=== PATIENT | female | born 1990 | race Caucasian/White ===

== ENCOUNTER 2025-05-28 11:37 | Outpatient (REF) | payer SELFPAY ==
[2025-05-28 13:49] LABS: MANUAL DIFF FLAG NO
[2025-05-28 13:58] LABS: Hematocrit 39.4 % (37.0-47.0); Hemoglobin 13.1 g/dl (12.0-16.0); Imm Gran Abs Auto 0.01 X10*3/uL (0.00-0.03); Imm Gran Pct Auto 0.2 % (0.0-0.4); Lymphocytes Absolute Auto 1.9 X10*3/uL (1.2-4.9); Mean Corpuscular HGB Conc 33.2 g/dl (31.0-35.0); Mean Corpuscular Hemoglobin 29.2 pg (27.0-33.0); Mean Corpuscular Volume 87.9 fL (80.0-98.0); NRBC Abs Auto 0.000 X10*3/uL (0.0-0.012); NRBC Pct Auto 0.0 /100WBC (0.0-0.2); Platelet Count 255 X10*3/uL (160-400); Red Blood Count 4.48 X10*6/uL (4.20-5.50); White Blood Count 6.1 X10*3/uL (4.8-10.8)
--- OUTSIDE RECORDS SUMMARY | 2025-05-28 14:55 | XMS_ITS | Data Portability ---
Author Organization [place] - [facility], [facility] Address [address] [place] [address] Care Team Providers Care Unhairer Name Role Phone MARLON AGUIRRE Primary Care Provider [phone] Assessment Encounter Date Assessment Date Assessment LastModified by Organization Details LastModified Time 07/20/2022 07/20/2022 Pt here for cramping after her menstrual cycle. Miesha has been trying to conceive since February 2022. She had a normal vaginal delivery in November 2020. She has been doing ovulation predictor kits for the past 2 months which has been showing that she has been ovulating on cycle day 18 and 19. Her last menstrual period was June 27 through . She has been having severe cramping after her menstrual period this cycle. She has not had this in any of her other cycles. Her cramps are like she normally gets on cycle day one of her. But she is not having her period. No abnormal discharge itch or odor. No constipation diarrhea or blood in her stool. Tried Motrin 800 w/o luck with pain. Normal exam. UA neg. U preg neg. Vaginitis panel sent. Pt to return for TV u/s. [email or web address] Not available 07/20/2022 09:07:02 08/18/2022 08/18/2022 Essentially normal scan, ? of adenomyosis, although no discrete fibroids. Prominent follicle on the right, ? PCOS on the left, although not definitive (and normal androgens in the Fall). Reassured, NSAIDs/heating pads for dysmenorrhea. Hopefully, will conceive spontaneously in the upcoming months, however has upcoming appt with JAMARI in [place] scheduled for October. [email or web address] Not available 08/18/2022 14:16:30 Plan of Treatment Reminders Order Date Submit Date Provider Last Modified By Organization Details Last Modified Time Details Appointments None recorded. Lab bacterial vaginosis + vaginitis panel, vaginal 2022 023 [facility], [address] [place] [address], [id number] 3 11:14:35 urinalysis, dipstick 2022 023 [email or web address] In-Office Order, Internal Use Only DO Not Attach Compendium DO Not Attach Compendium, Do Not Delete/merge, [id number] 3 09:05:47 test, urine 2022 023 [email or web address] In-Office Order, Internal Use Only DO Not Attach Compendium DO Not Attach Compendium, Do Not Delete/merge, [id number] 3 09:05:47 progesteron e, serum 2021 022 [facility], [address] [place] [address], [id number] 2 20:17:34 progesteron e, serum 2021 022 [facility], [address] [place] [address], [id number] 2 02:31:18 estradiol, serum 2021 022 [facility], [address] [place] [address], [id number] 2 05:17:54 lh + FSH, serum 2021 022 [facility], [address] [place] [address], [id number] 2 05:17:55 prolactin, serum 2021 022 [facility], [address] [place] [address], [id number] 2 05:17:56 progesteron e, serum 2021 022 [facility], [address] [place] [address], [id number] 2 05:17:55 beta-HCG, quantitativ e, serum or plasma 2021 [facility], [address], [place], 05:17:54 Referral None recorded. Procedures None recorded. Surgeries None recorded. Imaging US, transvagina l 2022 023 [email or web address] Not available 3 14:17:52 US, transvagina l 2021 022 [email or web address] Not available 11:27:44 Medication Orders None recorded. Patient TargetsNo targets recorded. Patient InstructionsNo instructions recorded. Reason for Referral None Reported. Results Created Date Observation Date Name Description Value Unit Range Abnormal Flag Note LastModifiedBy Organization Detail LastModifiedTime 03/02/2003/02/2022 ESTRA DIOL estradiol 55 pg/mL Refer ence Range s ----- ----- ----- ----- ---- Menst ruati ng Femal es: Folli cular Phase : 21-25 1 Mid-C ycle Phase : 38-64 9 Lutea l Phase : 21-31 2 Postm enopa usal Femal es not on Horom one Repla cemen t Thera py: <10-2 8 Postm enopa usal Femal es on HRT: <10-1 44 Not Available [facility] [address], [place], 03/03/2022 05:17:54 03/02/2003/02/2022 FSH AND LH PROFI LE follicle-sti mulating hormone 4.3 mIU/m L Refer ence Range s ----- ----- ----- ----- ---- Le l Menst ruati ng Femal es: Folli cular Phase 3.0-8 .1 Mid-C ycle: 2.6-1 6.7 Lutea l Phase : 1.4-5 .5 Postm enopa usal: 26.7- 133.4 Not Available [facility] [address], [place], 03/03/2022 05:17:55 09/26/20 22 03/02/2022 FSH AND LH PROFI LE luteinizing hormone 6.9 mIU/m L Refer ence Range s ----- ----- ----- ----- ---- Le l Menst ruati ng Femal es: Folli cular Phase 1.8-1 1.8 Mid-C ycle Peak: 7.6-8 9.1 Lutea l Phase : 0.6-1 4.0 Postm enopa usal: 5.2-6 2.0 Not Available [facility] [address] [place] [address], [place], 03/03/2022 05:17:55 03/02/20 22 03/02/2022 PROGE STERO NE progesterone 0.5 NG/mL Refer ence Range s ----- ----- ----- ----- ---- Le l Menst ruati ng Femal es: Folli cular Phase <0.1- 0.3 Lutea l Phase : 1.2-1 5.9 Pregn ant Femal es: First Trime ster: 2.8-1 47.3 Secon d Trime ster: 22.5- 95.3 Third Trime ster: 27.9- 242.5 Postm enopa usal: <0.1- .02 Not Available [facility] [address] [place], [address] 03/03/2022 05:17:55 03/02/20 22 03/02/2022 PROLA CTIN prolactin 11.0 NG/mL 5.2-26 .5 Not Available [facility] [address] [place] [address], [place], 03/03/2022 05:17:55 03/12/20 22 03/12/2022 PROGE STERO NE progesterone 0.5 NG/mL normal Refer ence Range s Femal e Folli cular Phase < 1.0 Lutea l Phase 2.6-2 1.5 Post menop ausal < 0.5 Pregn leydi 1st Trime ster 4.1-3 4.0 2nd Trime ster 24.0- 76.0 3rd Trime ster 52.0- 302.0 Not Available [facility] [address], [address], 03/12/2022 20:17:34 03/12/20 22 03/14/2022 FSH AND LH FSH 5.5 mIU/m L normal Refer ence Range Folli cular Phase 2.5-1 0.2 Mid-c ycle Peak 3.1-1 7.7 Lutea l Phase 1.5- 9.1 Postm enopa usal 23.0- 116.3 Not Available [facility] [address], [address], 03/14/2022 16:45:51 03/12/20 22 03/14/2022 FSH AND LH LH 13.9 mIU/m L normal Refer ence Range Folli cular Phase 1.9-1 2.5 Mid-C ycle Peak 8.7-7 6.3 Lutea l Phase 0.5-1 6.9 Postm enopa usal 10.0- 54.7 Not Available [facility] [address], [address], 03/14/2022 16:45:51 03/12/20 22 03/14/2022 ANTI- MULLE VIVIANA HORMO NE (AMH) , FEMAL E anti-mulleri an hormone (amh), female 4.58 NG/mL 0.36-1 0.07 Not Available [facility] [address], [place], [address], 03/14/2022 16:45:52 03/12/20 22 03/14/2022 THYRO ID BASIC T4, free 1.2 NG/dL 0.8-1. 8 normal Not Available [facility] [address], [address], 03/14/2022 16:45:52 03/12/20 22 03/14/2022 THYRO ID BASIC TSH 1.10 mIU/L normal Refer ence Range > or = 20 Years 0.40- 4.50 Pregn leydi Range s First trime ster 0.26- 2.66 Secon d trime ster 0.55- 2.73 Third trime ster 0.43- 2.91 Not Available [employer] [facility] [address], [address], 03/14/2022 16:45:52 03/12/20 22 03/14/2022 PROLA CTIN prolactin 8.0 NG/mL normal Refer ence Range Femal es Non-p regna nt 3.0-3 0.0 Pregn ant 10.0- 209.0 Postm enopa usal 2.0-2 0.0 Not Available [facility] [facility] [address], [address], 03/14/2022 16:45:53 03/12/20 22 03/14/2022 ESTRA DIOL estradiol 39 pg/mL normal Refer ence Range Folli cular Phase : 19-14 4 Mid-C ycle: 64-35 7 Lutea l Phase : 56-21 4 Postm enopa usal: < or = 31 Refer ence range estab lishe d on post- puber derek patie nt popul ation . No pre-p ubert al refer ence range estab lishe d using this assay . For any patie nts for whom low Estra diol level s are antic ipate d (e.g. males , pre-p ubert al child maicol and hypog onada l/pos t-men opaus al femal es), the [facility] t[facility] Estra diol, Ultra sensi tive, LCMSM S assay is recom rome garcia (orde r code 93127 ). Pledarren e note: patie nts being treat ed with the drug fulve stran t (Fasl odex( R)) have demon strat ed signi fican t inter feren ce in immun oassa y metho ds for estra diol measu remen t. The cross react ivity could lead to false ly eleva nan estra diol test resul ts leadi ng to an inapp ropri ate clini sanjay asses sment of estro gen statu s. [facility] order code [id number] -Estr adiol , Ultra sensi tive LC/MS /MS demjessika moorei radha cross react ivity with gissell eber t. Not Available [address], [address], 03/14/2022 16:45:53 03/12/20 22 03/21/2022 ANTI- MULLE VIVIANA HORMO NE (AMH) , FEMAL E anti-mulleri an hormone (amh), female 4.58 NG/mL 0.36-1 0.07 Not Available [address], [address], 03/21/2022 20:34:38 03/12/20 22 03/21/2022 TEST AUTHO RIZAT ION test name: TESTOS TERTIESHA , TOTAL, MS Not Available [address], [place], [address], 03/21/2022 20:34:38 03/12/20 22 03/21/2022 TEST AUTHO RIZAT ION test code: 26846L FLORES Not Available [address], [address], 03/21/2022 20:34:38 03/12/20 22 03/21/2022 TEST AUTHO RIZAT ION client contact: BEN WEEMS Not Available [address], [address], 03/21/2022 20:34:38 03/12/20 22 03/21/2022 TEST AUTHO RIZAT ION report always message signature The labor atory testi ng on this patie nt was verba lly reque sted or confi rmed by the order ing physi briana or his or her autho rized repre senta tive after conta ct with an emplo kamara of [facility] sYehuda Thomas al regul ation s requi re that we maint ain on file writt en autho rizat ion for all labor atory testi ng. Accor dingl y we are askin g that the order ing physi briana or his or her autho rized repre senta tive sign a copy of this repor t and promp tly retur n it to the clien t servi ce repre senta tive. Signa ture: __ Not Available [facility] [address], [address], 03/21/2022 20:34:38 03/12/20 22 03/21/2022 TEST AUTHO RIZAT ION comment Martinez rocha fax this bill d form to [phone]. Martinez rocha do not attem pt to retur n this docum ent by other metho ds. Docum ents will not be viewe d by a repre senta tive. Martinez rocha do not use this fax numbe r for other servi ce reque sts. Not Available [facility] [address], [address], 03/21/2022 20:34:38 03/12/20 22 03/21/2022 THYRO ID BASIC T4, free 1.2 NG/dL 0.8-1. 8 normal Not Available [facility] [address], [address], 03/21/2022 20:34:39 03/12/20 22 03/21/2022 THYRO ID BASIC TSH 1.10 mIU/L normal Refer ence Range > or = 20 Years 0.40- 4.50 Pregn leydi Range s First trime ster 0.26- 2.66 Secon d trime ster 0.55- 2.73 Third trime ster 0.43- 2.91 Not Available [facility] [place] [facility] [address], [address], 03/21/2022 20:34:39 03/12/20 22 03/21/2022 TESTO STERO NE, TOTAL , MS testosterone , total, MS 28 NG/dL 2-45 For addit ional infor martinez brandon e refer to http: //[facility] asad brewer.que stdia gnost ics.c om/fa q/Tot alTes osmani leoneeL [facility] (This link is being provi ded for infor kan nal/ educa janice l purpo ses only. ) This test was devel oped and its pawan tical perfo rmanc e sharon cteri stics have been deter mined by [facility]. It has not been clear ed or appro marty by the FDA. This assay has been valid ated pursu ant to the CLIA regul ation s and is used for clini sanjay purpo ses. Not Available [employer] [facility] [place] [facility] [address], [place], [address], 03/21/2022 20:34:40 04/23/20 22 04/24/2022 PROGE STERO NE progesterone 5.4 NG/mL normal Refer ence Range s Femal e Folli cular Phase < 1.0 Lutea l Phase 2.6-2 1.5 Post menop ausal < 0.5 Pregn leydi 1st Trime ster 4.1-3 4.0 2nd Trime ster 24.0- 76.0 3rd Trime ster 52.0- 302.0 Not Available [facility] [place] [address], [address], 04/24/2022 02:31:17 07/20/19 23 07/20/2022 VAGIN ITIS PROFI LE gardnerella Negati ve negati ve Not Available [facility] [address] [place], [address] 07/21/2022 11:14:35 07/20/19 23 07/20/2022 VAGIN ITIS PROFI LE trichomonas Negati ve negati ve Not Available [facility] [address] [place], [address] 07/21/2022 11:14:35 07/20/19 23 07/20/2022 VAGIN ITIS PROFI LE bettina Negati ve negati ve Not Available [facility] [address] [place], [address] 07/21/2022 11:14:35 07/20/19 23 07/20/2022 pregn leydi test, urine Result negati ve Not Available In-Office Order Internal Use Only DO Not Attach Compendium DO Not Attach Compendium, Do Not Delete/merge, [id number] 07/20/2022 09:05:26 07/20/19 23 07/20/2022 urina lysis , dipst ick Interpretati on negati ve Not Available In-Office Order Internal Use Only DO Not Attach Compendium DO Not Attach Compendium, Do Not Delete/merge, [id number] 07/20/2022 09:05:25 03/10/20 22 03/10/2022 US, trans vagin al RAD [email or web address] Not Available 03/16/2022 23:14:42 08/19/19 23 08/18/2022 US, trans vagin al RAD [email or web address] Not Available 08/29/2022 12:40:15 Result Notes None recorded. Problems Name Problem SNOMED Code Status Onset Date Resolution Date Notes Provider Name and Address Organization Details Recorded Time Abnormal uterine bleeding due to adenomyosi s 7955322623019 9107 Active 2022 AMANDA MARTI MD [address] [facility], [address] [place] [address], [phone] , [facility] 21:12:17 Anovulatio n 51386407 Active 2022 AMANDA MARTI MD [address] [facility], [address] [place] [address], [phone] , [facility] 3 21:12:33 Problem Notes None recorded. Procedures Surgical History Date Name Laterality Status Provider Name and Address Organization Details Recorded Time 09/08/19 23 Telemedicine Visit completed AMANDA MARTI MD 175 [facility], [address] [place] [address], [place], [address], [facility] 09/07/2022 21:05:11 06/07/19 21 Date of Last Pap Smear completed YANIQUE HEMPHILL MD [address] [facility], [address] [place] [address], [place], [address], [facility] 03/02/2022 10:28:02 06/07/19 06 Other completed Allison Hernandez [facility] 03/02/2022 10:02:53 Imaging Results None recorded. Procedure Notes None recorded. Medical Equipment None Reported. Allergies Allergen ID Allergen Name Allergen Category Reaction Reaction Severity Criticality Documentation Date Start Date Code Code System Note Provider Name and Address Organization Details Recorded Time [id number] cat dander environme nt rash respirato ry distress moderate moderate Not available 03/02/2022 Allison Hernandez [facility], [facility] 2 09:58:47 No known drug allergies Medications Name Sig Start Date Stop Date Status Note LastModified by Organization Details LastModified Time triamcinolo ne acetonide 0.5 % topical cream APPLY TOPICALLY TO THE AFFECTED AREA TWICE DAILY active Not Available Not Available No t Available diphenoxyla te-atropine 2.5 mg-0.025 mg tablet TAKE 1 TABLET BY MOUTH FOUR TIMES DAILY NEEDED FOR LOOSE STOOLS 03/01 completed Not Available Not Available Not Available dicyclomine 20 mg tablet TAKE 1 TABLET BY MOUTH FOUR TIMES DAILY FOR 7 DAYS 03/01 completed Not Available Not Available Not Available omeprazole 20 mg capsule,del ayed release TAKE 1 CAPSULE BY MOUTH DAILY 03/01 completed Not Available Not Available Not Available dexmethylph enidate ER 10 mg capsule,ext ended release keofkeca68- 50 TAKE 1 CAPSULE BY MOUTH DAILY IN THE MORNING 03/01 completed Not Available Not Available Not Available doxylamine succinate active Not Available Not Available No t Available baclofen 5 mg tablet TAKE 1 TABLET BY MOUTH DAILY AT BEDTIME 07/17 completed Not Available Not Available Not Available Simpesse 0.15 mg-30 mcg (84)/10 mcg(7) tablets,3 month dose pack 03/01 completed Not Available Not Available Not Available Vitals Date Recorded Body height Body mass index (BMI) Body weight Systolic And Diastolic Provider Name and Address Organization Details Last Updated DateTime 07/20/2022 171.45 cm 23.6 kg/m2 06244.63 g 122/70 mm[Hg] Yoon Eden [facility] 07/20/2022 08:42:42 Date Recorded Body height Body mass index (BMI) Body weight Systolic And Diastolic Provider Name and Address Organization Details Last Updated DateTime 08/18/2022 171.45 cm 23 kg/m2 87317.26 g 120/70 mm[Hg] Madhuri Houston [facility] 08/18/2022 13:44:20 Date Recorded Body height Body mass index (BMI) Body weight Systolic And Diastolic Provider Name and Address Organization Details Last Updated DateTime 03/02/2022 171.45 cm 23.3 kg/m2 78395.45 g 122/68 mm[Hg] Allison Hernandez [facility] 03/02/2022 10:10:28 Date Recorded Body height Body mass index (BMI) Body weight Systolic And Diastolic Provider Name and Address Organization Details Last Updated DateTime 03/10/2022 171.45 cm 23.5 kg/m2 69470.04 g 122/74 mm[Hg] Ben Phelps [facility] 03/10/2022 09:30:57 Social History Question Answer Notes LastModified by Organizat ion Details LastModified Time Tobacco Smoking Status Never Smoker Madhuri Houston [facility], [facility] 08/18/2022 13:41:22 What Is The Highest Grade Or Level Of School You Have Completed Or The Highest Degree You Have Received? PR14444-3 Information not available 08/18/2022 Do You Have Any Children? Yes Information not available 03/02/2022 Does Your Partner Physically Hurt You Or Threaten To Hurt You? No Information not available 03/02/2022 Has Your Partner Forced You To Have Sex Or Perform Sex Acts When You Did Not Want To? No Information not available 03/02/2022 Does Your Partner Insult, Scream At Or Talk Down To You? No Information not available 03/02/2022 Does Your Partner Control You Or Any Part Of Your Life? No Information not available 03/02/2022 Are You Afraid Of Your Partner? No Information not available 03/02/2022 Drug Use? No Information no t available 03/02/2022 Do You Feel Safe At Home? Yes Information not available 03/02/2022 How Many Children Do You Have? 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 No Information not available 08/18/2022 Are You Sexually Active? Yes Information not available 08/18/2022 How Much Tobacco Do You Smoke? No Information not available 08/18/2022 Have You Recently Traveled Abroad? No Information not available 08/18/2022 Sex: Unknown Functional Status Question Answer Note LastModified by Organizat ion Details LastModified Time What is your level of alcohol consumption? Occasional Information not available 08/18/2022 Are you currently employed? Yes Information not available 09/07/2022 What is your exercise level? Moderate Information not available 08/18/2022 Mental Status Question Answer Note LastModified by Organization D etails LastModified Time Do you feel stressed (tense, restless, nervous, or anxious, or unable to sleep at night)? [id number] Information not available 08/18/2022 Family History Relationship Description Onset Age of this Age Resolved Age Notes LastModified by Organization Details LastModified Time Father Depressive disorder volivier Not available 2021 10:00:03 Brother Depressive disorder volivier Not available 2021 10:00:05 Sister Depressive disorder volivier Not available 2021 10:00:06 Paternal Grandmother Depressive disorder volivier Not available 2021 10:00:08 Paternal Grandmother Mental disorder volivier Not available 2021 09:59:36 Maternal Aunt Depressive disorder volivier Not available 2021 10:00:10 Mother Disorder of thyroid gland volivier Not available 2021 09:59:38 Paternal Grandfather Heart disease volivier Not available 2021 09:59:40 Maternal Grandmother Malignant neoplastic disease volivier Not available 2021 09:59:42 Maternal Grandmother Malignant neoplasm of lung volivier Not available 2021 10:00:01 Notes:No fhx of breast, colo n, or ovarian cancer. Medical History Condition Response Asthma Y Gynecological History Statement/Question Response Abnormal Pap N BrCa Positive N Infertility N Date of LMP 07/28/2022 HPV Vaccine Y Endometriosis N Current Control Method Condoms Age at Menarche 11 Fibroids N Age at First Child 31 Cervical Cancer N Uterine Cancer N BrCa gene tested? N Current Control Method None Ovarian Cancer N Breast Cancer N Sexually Active? Y Sexual Problems? N Date of Last Pap Smear 06/07/2020 Obstetrics History GPAL:G 2 P 1 0 1 1 Type Value Full Term 1 Spontaneous 1 Living 1 Total 2 Past Encounters Encounter ID Performer Location Encounter Start Date Encounter Closed Date Diagnosis/Indication Diagnosis SNOMED-CT Code Diagnosis ICD10 Code Diagnosis IMO Codes Diagnosis Note [id number] YANIQUE HEMPHILL MD [facility] [address] [facility],[address] [address] 03/02/2022 09:55:09 03/02/2022 13:40:09 Trying to conceive [id number] Z31.9 32yo here as a new patient to discuss conception . Pt has a 1yo, menses were regular prior to having him. Stopped breastfeed ing him at 5mo old. For the last 2mo has had menses q2wk. Did CBC/CMP and TFTs with PCP, all normal. Recommende d US and will check coverage for sonohyst if indicated. Will also check some labs, on day 4 of cycle. Pt states she thinks she had pap at her PP visit with prior practice in [place], will sign release. Recommende d PNV. RTO for US next week since just had her cycle. Abnormal u terine bleeding [id number] 9100 N93.9 [id number] GAY JENNINGS MD [facility] [address] [place] [address] 03/10/2022 09:26:53 03/10/2022 11:27:44 Abnormal uterine bleeding [id number] 9100 N93.9 Pt here for bleeding q 2 weeks. Last bleed 02/26. U/S - Uterus- 5.0 x 3.4 x 4.4cm, EMS 4mm, R. ovary- 2.2 x 2.1 x 2.3cm, L. ovary - 4.0 x 2.0 x 1.8cmSonoh yst - normal liningNo evidence of ovulation. PT will call with next episode of bleeding and repeat FSH and estradiol in case she was not really on day #4. Will do progestero ne on Day 21. Pt reassured that u/s appears normal. [id number] ROSIBEL WEIR MD GAO1 [address] [place],[address] [address] 07/20/2022 08:22:24 07/20/2022 09:13:41 Pain in pelvis 29013453 R10.2 [id number] ROSALIA HICKS DO [facility] [address] [address] 08/18/2022 13:38:41 08/18/2022 14:17:52 Pain in pelvis 08182120 R10.2 Dysmenorrhea 732524893 N 94.6 Trying to conceive [address] 9001 Z31.9 [id number] AMANDA MARTI MD [facility] [facility] [address] [place] [address] 09/07/2022 10:00:12 09/08/2022 07:51:58 Abnormal uterine bleeding due to adenomyosis [id number] 9218459 N93.9 32-year-ol d -0-1-1 with attempted over the past 5 to 6 months without success. Patient has upcoming visit with reproducti ve endocrinol ogy group. Patient and I discussed anovulatio n, ovulation induction, male factor infertilit y, possible uterine adenomyosi s, other causes of infertilit y. Patient will get back to us after she has her visit. Anovulation 18690941 N97 .0 Health Concerns Section Related Observation LastModified by Organization Detai ls LastModified Time None Recorded Concern Status LastModified by Organization Details LastModified Time None Recorded Advance Directives Directive None Recorded Payers Insurance Date Sequence Insurance Name Policy Number Policy Alas Covered Member ID Alas Member ID Guarantor Name 03/09/2023 2 [facility] () Oren Lewis [id number] Jesu Lewis 03/09/2023 1 [employer] [id number] Jesu Yoon Debbie [id number] Jesu Lewis Notes Date Note Type Note Provider Name and Address Organization Details Recorded Time 2 text/html Menses irregular, got menses 3mo after giving . Was pumping for 5mo then stopped. Past 2mo has had menses every 2wk. Menses are heavier than pre-, more bright red bleeding. Lasts 4-5d. Having a lot of insomnia, wakes up due to hot flashes. Did have TFTs , CMP, and CBC checked which were normal. Did get a sleep study which was negative for sleep apnea. Tried a control pill for 3d which made her very nauseous. YANIQUE HEMPHILL MD [address] [facility], [address] [place], [phone], [facility] 03/02/2022 13:25:06 2 text/html Pt here for irregular bleeding Had normal menses since stopping 7 months ago. Pt reports that 2 months ago she started bleeding every two weeks. She had normal labs on day #4. and her PCP did TSH . GAY JENNINGS MD [address] [facility], [address], [place], [phone], [facility] 03/16/2022 23:21:39 3 text/html 32 yo here c/o cramps after her menstrual cycle. Miesha has been trying to conceive since February 2022. She had a normal vaginal delivery in November 2020. She has been doing ovulation predictor kits for the past 2 months which has been showing that she has been ovulating on cycle day 18 and 19. Her last menstrual period was June 27. She has been having severe cramping after her menstrual period this cycle. She has not had this in any of her other cycles. Her cramps are like she normally gets on cycle day one of her. But she is not having her period. No abnormal discharge itch or odor. No constipation diarrhea or blood in her stool. Tried Motrin 800 w/o luck with pain. ROSIBEL WEIR MD [address] [facility] [facility], [place], [phone], [facility] 07/20/2022 09:07:54 3 text/html U/S for recent dysmenorrhea. Trying to conceive since February, using OPKs, which indicated ovulation, although days 17-19. Has appt with JAMARI in [place] in October. ROSALIA HICKS DO [address] [facility] [facility], [place], [phone], [facility] 08/18/2022 14:16:41 3 text/html Generic HPI TemplateReported by PatientPt here for telemedicine visit using [employer]ue[employer] platform. Patient was at home for telemedicine visit. Patient is 32-year-old who has been attempting for approximately 5-6 months without success. Patient has upcoming visit with [facility] reproductive endocrinology group. Patient wanted to discuss possible causes of difficulty getting and possible testing that the reproductive endocrinology group could do. First, we discussed patient's recent ultrasound which indicated the possibility of uterine adenomyosis. 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 Subfertility associated with pelvic endometriosis reviewed. Testing such as further imaging or laparoscopy with question excision of endometriosis discussed. Patient also discussed her menstrual cycle. Her cycle length usually is 28-30 days but she has had longer cycle length in the 35-40-day range. However, this seemed to be associated with medical illness recently. We discussed the possibility that the reproductive endocrinology group could discussed clomiphene citrate or letrozole as a possible ovulation induction agent. We also revealed male factor infertility as potential cause of infertility and 40% of couples. We also discussed hysterosalpingogram as possible test. Patient will do Internet research prior to her reproductive endocrinology visit. AMANDA MARTI MD [address] [place] [address], [address], [place], [phone], [place] [facility] 09/07/2022 21:13:42 OBGyn Episode Ob Episode Information Episode Created Date Number of Fetuses Patient Bloodtype Patient rh Status Prepregnancy Weight lbs Domestic Partner Domestic Partner Phone Father Name Oil Pumper Status 03/02/20 22 1 CLOSED Fetus Data First Name Last Name Admitted to NICU Weight (g) Sex Living Outcome Pediatric Complications Fetus ID Race Codes Race Delivery Type 3770.25 6704 M Full Term [id number] Vaginal Delivery Kuldeep Calculation Initial Kuldeep Date Initial Exam Date Initial Exam Provider Initial Ultrasound Date Last Menstrual Period Date Ultra Sound Weeks Gestation 0 Eighteen To Twenty Week Kuldeep Update Ultra Sound Date Fundal Height At Umbil Quickening Date Ultra Sound Latest Weeks Gestation Final Kuldeep Confirmed By Final Kuldeep Confirmed Date Final Kuldeep Date Ultra Sound Latest Days Gestation 0 0 Menstrual History Last Menstrual Date Menses Monthly On Bcp Conception Prior Menses Frequency Hcg Plus Date Menarche Onset Age Delivery Information Delivery Date Delivery Type Labor Anesthesia Weeks Gestation Incision Type Labor Labor Length Hrs Delivered By Post Complications Tubal Sterilization Discharge Date Comments 1 40.6 no complicat ions other than meconium Discharge Information Feeding Method Contraceptive Method Maternal HG B and HCT Levels
--- OUTSIDE RECORDS SUMMARY | 2025-05-28 14:55 | XMS_ITS | Patient Health Record ---
Author Organization [facility] Address [address] [place] [address] [address] [place] [address] Care Team Providers Care Lease Out Man Name Role Phone Lizbet FERRO, [facility] Primary Care Provider Un available DR. Ramirez Ansari Unavailable Allergies Allergen (clinical drug ingredient) Drug/Non Drug Allergy documented on EMR Reaction Allergy Type Onset Date Status Seasonal (uncoded) Unknown Allergy A ctive Reason For Referral No Information Medications Medication SIG (Take, Route, Frequency, Duration) Notes Start Date End Date Status Baclofen Active Focalin Active Dymista 137-50 MCG/ACT Suspension 1 puff in each nostril Nasally Twice a day; Duration: 30 day(s) 10/10/2018 Active Multivitamin Active Montelukast Sodium A ctive Flonase Active Social History Social History General Social Info Question Answer Notes Drugs/Alcohol: Alcohol use: Yes; Wine. On e a month Tobacco: Tobacco Use other than smoking? 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: No Problems Problem Type SNOMED Code ICD Code Onset Dates Problem Status W/U Status Risk Notes Problem Recurrent sinusitis (700214776) Recurrent sinusitis (J32.9) Active confirmed Problem Daytime somnolence (300811906805) Daytime somnolence (R40.0) Active confirmed Problem Hyposmia (94398307) Hyposmia (R43.8) Active confirmed Problem Allergic rhinitis (05007077) Allergic rhinitis, cause unspecified (J30.9) Active confirmed Plan Of Treatment Pending Test Test Name Order Date CT SINUS MAXILLOFACIAL AREA COMPLETE WIT HOUT CONTRAST 10/10/2018 Insurance Providers Payer Name Payer Address Payer Phone Subscriber Number Group Number Insured Name Patient Relationship to Insured Coverage Start Date Coverage End Date [employer] [address] [address] [place] [address] [id number] Jesu Lewis Spouse - patient is the spouse of the insured Medical (General) History Medical History History ICD Code Asthma Bronchitis Sinus Infection Headaches Surgical History Surgery Date(Month/Year)
--- OUTSIDE RECORDS SUMMARY | 2025-05-28 14:55 | XMS_ITS ---
[facility] Name [facility] Unknown History of Medication Use Medication Directions Dispensed Refills Start Date End Date Stat us None recorded. (No additional sig information) completed triamcinolone acetonide 0.5 % topical cream APPLY TOPICALLY TO THE AFFECTED AREA TWICE DAILY APPLY TOPICALLY TO THE AFFECTED AREA TWICE DAILY completed Allergies Allergen Reaction Severity Comment Documented Date Source Statu s CAT DANDER [facility]AT[facility]RESS [facility] Problems Problem Status Onset Date Problem Type Date of Resoluti on Source Abnormal uterine bleeding due to adenomyosis active 2022-09-07 ProblemAct [facility] Anovulation active 2022-09-07 ProblemAct [facility] H Encounters Encounter Type Encounter Reason Primary Diagnosis Location Date [facility] 09/07/2022 [facility] 08/18/2022 [facility] 08/18/2022 [facility] 07/20/2022 [facility] 03/10/2022 [facility] 03[facility]10/2022 [facility] 03/02/2022 Care Team Organization Name Specialty Phone Email Start Date End [facility] te [facility] 03/17/2022 [facility] 03/02/2022 03/10/2022
[2025-05-28 16:31] LABS: Alanine Aminotransferase 22 U/L (0-31); Albumin Level 4.8 g/dL (3.5-5.0); Alkaline Phosphatase 50 U/L (39-117); Anion Gap 10 (12-20); Aspartate Amino Transferase 18 U/L (5-31); Blood Urea Nitrogen 15 mg/dL (9-16); Calcium 9.7 mg/dL (8.4-10.2); Carbon Dioxide 29 mmol/L (22-29); Chloride 105 mmol/L (96-108); Cholesterol 177 mg/dL (<200); Estimated Glomerular Filt Rate > 60; HDL Cholesterol 58 mg/dL (>40); Potassium 4.4 mmol/L (3.3-5.1); Sodium 140 mmol/L (135-145); Thyroid Stimulating Hormone 1.02 uIU/mL (0.32-4.0); Total Protein 7.3 g/dL (6.5-8.0); Triglycerides 40 mg/dL (<150)
== END 2025-05-28 11:38 | disposition home or self-care (01) ==
LOC: HO.MANLDS 11:37
PROVIDERS: Visit Provider Internal Medicine
DX: Z00.01 Encounter for general adult medical examination with abnormal findings (principal); Z13.6 Encounter for screening for cardiovascular disorders; Z13.21 Encounter for screening for nutritional disorder; Z13.29 Encounter for screening for other suspected endocrine disorder
CPT/HCPCS: 36415; 80053; 80061; 82306; 84443; 85025